=== PATIENT | female | born 1965 | race American Indian/Alaskan Native ===

== ENCOUNTER 2018-08-14 19:52 | Emergency (ER) | payer OTHER ==
[2018-08-14 20:08] VITALS: BP 155/94
--- NOTE | 2018-08-14 20:10 | Emergency Department Report ---
ED Recheck HPI - General Chief Complaint: Medical Clearance Stated Complaint: RX REFILL Time Seen by Provider: 08/14/18 20:06 Source: patient Mode of arrival: Ambulatory Limitations: No Limitations - History of Present Illness MD Complaint: medication refill request Description of Abnormal Result: visiting from out of town out of her metformin no complaints - Related Data Home Medications Medication Instructions Recorded Confirmed Last Taken hydroCHLOROthiazide [HCTZ] 25 mg PO QDAY 04/18/18 04/18/18 04/17/18 Previous Rx's Medication Instructions Recorded Last Taken Type metFORMIN [Glucophage] 500 mg PO BID #60 tablet 08/14/18 Unknown Rx Allergies Allergy/AdvReac Type Severity Reaction Status Date / Time No Known Allergies Allergy Verified 04/18/18 05:19 ED Review of Systems ROS: Stated complaint: RX REFILL Other details as noted in HPI Comment: All other systems reviewed and negative Constitutional: denies: see HPI Eyes: denies: eye pain ENT: denies: ear pain Respiratory: denies: cough Cardiovascular: denies: dyspnea on exertion Endocrine: denies: excessive sweating Gastrointestinal: denies: vomiting Genitourinary: denies: urgency Musculoskeletal: denies: back pain Skin: denies: lesions Psychiatric: denies: depression Hematological/Lymphatic: denies: easy bleeding ED Past Medical Hx - Past Medical History Previous Medical History?: Yes Hx Hypertension: Yes Hx Congestive Heart Failure: No Hx Diabetes: Yes Hx Asthma: No Hx HIV: No - Surgical History Past Surgical History?: Yes Additional Surgical History: x3 - Social History Smoking Status: Current Every Day Smoker - Medications Home Medications: Home Medications Medication Instructions Recorded Confirmed Last Taken Type hydroCHLOROthiazide [HCTZ] 25 mg PO QDAY 04/18/18 04/18/18 04/17/18 History metFORMIN [Glucophage] 500 mg PO BID #60 tablet 08/14/18 Unknown Rx ED Physical Exam - General Limitations: No Limitations General appearance: alert, in no apparent distress - Head Head exam: Present: atraumatic - Eye Eye exam: Present: normal appearance, PERRL Pupils: Present: normal accommodation - ENT ENT exam: Present: mucous membranes moist - Neck Neck exam: Present: normal inspection, full ROM - Respiratory Respiratory exam: Present: normal lung sounds bilaterally - Cardiovascular Cardiovascular Exam: Present: regular rate - GI/Abdominal GI/Abdominal exam: Present: soft, normal bowel sounds - Rectal Rectal exam: Present: deferred - Extremities Exam Extremities exam: Present: normal inspection - Back Exam Back exam: Present: normal inspection - Neurological Exam Neurological exam: Present: alert, oriented X3, CN II-XII intact, normal gait ED Course Vital Signs 08/14/18 20:06 Temperature 98.1 F Pulse Rate 90 Respiratory 18 Rate Blood Pressure 155/94 O2 Sat by Pulse 99 Oximetry ED Recheck MDM - Differential Diagnosis Prescription Refill(s) Critical care attestation.: If time is entered above; I have spent that time in minutes in the direct care of this critically ill patient, excluding procedure time. ED Disposition Clinical Impression: Diabetes mellitus type 2 in obese, Medication refill Disposition: DC- TO HOME OR SELFCARE Is pt being admited?: No Does the pt Need Aspirin: No Condition: Stable Prescriptions: metFORMIN [Glucophage] 500 mg PO BID #60 tablet Referrals: [facility] [Outside] - 3-5 Days Time of Disposition: 20:07
== END 2018-08-14 20:10 | disposition home or self-care (01) ==
LOC: ED 19:52
DX: E11.69 Type 2 diabetes mellitus with other specified complication (principal); I10 Essential (primary) hypertension; F17.200 Nicotine dependence, unspecified, uncomplicated; Z79.84 Long term (current) use of oral hypoglycemic drugs; Z76.0 Encounter for issue of repeat prescription
CPT/HCPCS: 99282

== ENCOUNTER 2018-10-04 11:36 | Emergency (ER) | payer OTHER ==
[2018-10-04 12:16] VITALS: BP 153/87
--- NOTE | 2018-10-04 12:18 | Emergency Department Report ---
ED Recheck HPI - General Chief Complaint: Medical Clearance Stated Complaint: MED REFILL Time Seen by Provider: 10/04/18 12:16 Source: patient Mode of arrival: Ambulatory Limitations: No Limitations - History of Present Illness MD Complaint: medication refill request - Related Data Home Medications Medication Instructions Recorded Confirmed Last Taken hydroCHLOROthiazide [HCTZ] 25 mg PO QDAY 04/18/18 04/18/18 04/17/18 Previous Rx's Medication Instructions Recorded Last Taken Type metFORMIN [Glucophage] 500 mg PO BID #60 tablet 08/14/18 Unknown Rx hydroCHLOROthiazide [HCTZ] 25 mg PO QDAY #30 tablet 10/04/18 Unknown Rx Allergies Allergy/AdvReac Type Severity Reaction Status Date / Time No Known Allergies Allergy Verified 10/04/18 11:45 ED Review of Systems ROS: Stated complaint: MED REFILL Other details as noted in HPI Comment: All other systems reviewed and negative ED Past Medical Hx - Past Medical History Hx Hypertension: Yes Hx Congestive Heart Failure: No Hx Diabetes: Yes Hx Asthma: No Hx HIV: No - Surgical History Additional Surgical History: x3 - Social History Smoking Status: Current Every Day Smoker Substance Use Type: None - Medications Home Medications: Home Medications Medication Instructions Recorded Confirmed Last Taken Type hydroCHLOROthiazide [HCTZ] 25 mg PO QDAY 04/18/18 04/18/18 04/17/18 History metFORMIN [Glucophage] 500 mg PO BID #60 tablet 08/14/18 Unknown Rx hydroCHLOROthiazide [HCTZ] 25 mg PO QDAY #30 tablet 10/04/18 Unknown Rx ED Physical Exam - General Limitations: No Limitations General appearance: alert - Head Head exam: Present: atraumatic, normocephalic - Eye Eye exam: Present: normal appearance, PERRL - ENT ENT exam: Present: mucous membranes moist - Neck Neck exam: Present: normal inspection, full ROM - Respiratory Respiratory exam: Present: normal lung sounds bilaterally - Cardiovascular Cardiovascular Exam: Present: regular rate - GI/Abdominal GI/Abdominal exam: Present: soft, normal bowel sounds - Extremities Exam Extremities exam: Present: normal inspection, full ROM - Back Exam Back exam: Present: normal inspection, full ROM - Neurological Exam Neurological exam: Present: alert, oriented X3 - Psychiatric Psychiatric exam: Present: normal affect, normal mood ED Course Vital Signs 10/04/18 12:15 Temperature 98.1 F Pulse Rate 76 Respiratory 18 Rate Blood Pressure 153/87 [Right] O2 Sat by Pulse 99 Oximetry ED Recheck MDM - Core Measures Measure Exclusions: not indicated - Differential Diagnosis Prescription Refill(s) - Medical Decision Making no symptoms just needs hctz refill visiting from out of town Vital Signs 10/04/18 12:15 Temperature 98.1 F Pulse Rate 76 Respiratory 18 Rate Blood Pressure 153/87 [Right] O2 Sat by Pulse 99 Oximetry Critical care attestation.: If time is entered above; I have spent that time in minutes in the direct care of this critically ill patient, excluding procedure time. ED Disposition Clinical Impression: Hypertension, Medication refill Disposition: DC-01 TO HOME OR SELFCARE Is pt being admited?: No Does the pt Need Aspirin: No Condition: Stable Instructions: Hypertension (ED) Prescriptions: hydroCHLOROthiazide [HCTZ] 25 mg PO QDAY #30 tablet Referrals: [facility] [Outside] - 3-5 Days Time of Disposition: 12:17
== END 2018-10-04 12:20 | disposition home or self-care (01) ==
LOC: ED 11:36
DX: I10 Essential (primary) hypertension (principal); E11.9 Type 2 diabetes mellitus without complications; F17.200 Nicotine dependence, unspecified, uncomplicated; Z76.0 Encounter for issue of repeat prescription; Z79.84 Long term (current) use of oral hypoglycemic drugs
CPT/HCPCS: 99281

== ENCOUNTER 2018-12-13 14:52 | Emergency (ER) | payer SELFPAY ==
--- NOTE | 2018-12-13 15:24 | Emergency Department Report ---
ED Recheck HPI - General Chief Complaint: Recheck/Abnormal Lab/Rx Stated Complaint: MEDICATION REFILL Time Seen by Provider: 12/13/18 15:23 Source: patient Mode of arrival: Ambulatory Limitations: No Limitations - History of Present Illness Initial Comments: 53 YO KNOWN TO US. NEW TO [facility]. OUT OF HER MEDS. DOES HAVE NEW PCP APPNT SET UP NO COMPLAINTS HERE FOR MEDS ONLY MD Complaint: medication refill request Symptoms Since Prior Visit: no new symptoms - Related Data Previous Rx's Medication Instructions Recorded Last Taken Type hydroCHLOROthiazide [HCTZ] 25 mg PO QDAY #30 tablet 12/13/18 Unknown Rx metFORMIN [Glucophage] 500 mg PO BID #60 tablet 12/13/18 Unknown Rx Allergies Allergy/AdvReac Type Severity Reaction Status Date / Time No Known Allergies Allergy Verified 12/13/18 14:55 ED Review of Systems ROS: Stated complaint: MEDICATION REFILL Other details as noted in HPI Comment: All other systems reviewed and negative ED Past Medical Hx - Past Medical History Hx Hypertension: Yes Hx Congestive Heart Failure: No Hx Diabetes: Yes Hx Asthma: No Hx HIV: No - Surgical History Additional Surgical History: x3 - Family History Family history: no significant - Social History Smoking Status: Current Every Day Smoker Substance Use Type: None - Medications Home Medications: Home Medications Medication Instructions Recorded Confirmed Last Taken Type hydroCHLOROthiazide [HCTZ] 25 mg PO QDAY #30 tablet 12/13/18 Unknown Rx metFORMIN [Glucophage] 500 mg PO BID #60 tablet 12/13/18 Unknown Rx ED Physical Exam - General Limitations: No Limitations General appearance: alert - Head Head exam: Present: normocephalic - Eye Eye exam: Present: normal appearance - ENT ENT exam: Present: mucous membranes moist - Neck Neck exam: Present: normal inspection - Respiratory Respiratory exam: Present: normal lung sounds bilaterally - Cardiovascular Cardiovascular Exam: Present: regular rate - GI/Abdominal GI/Abdominal exam: Present: soft - Rectal Rectal exam: Present: deferred - Extremities Exam Extremities exam: Present: normal inspection - Back Exam Back exam: Present: normal inspection - Neurological Exam Neurological exam: Present: alert, oriented X3 - Psychiatric Psychiatric exam: Present: normal affect ED Recheck MDM - Core Measures Measure Exclusions: not indicated - Medical Decision Making VSS NO COMPLAINTS MED REFILL ONLY KNOWN TO US HAS PCP NOW- WILL SEE THIS MONTH NEW TO [facility]- HAD BEEN VISITING HER MOTHER HERE DC HOME W RX AND PCP FOLLOW UP Critical care attestation.: If time is entered above; I have spent that time in minutes in the direct care of this critically ill patient, excluding procedure time. ED Disposition Clinical Impression: Medication refill, Diabetes mellitus type 2 in obese, Hypertension Disposition: DC-01 TO HOME OR SELFCARE Is pt being admited?: No Does the pt Need Aspirin: No Condition: Stable Instructions: Diabetes Mellitus Type 2 in Adults (ED), Hypertension (ED) Prescriptions: metFORMIN [Glucophage] 500 mg PO BID #60 tablet hydroCHLOROthiazide [HCTZ] 25 mg PO QDAY #30 tablet Referrals: [facility] [Outside] - 3-5 Days Time of Disposition: 15:25
== END 2018-12-13 16:10 | disposition home or self-care (01) ==
LOC: ED 14:52
DX: E11.9 Type 2 diabetes mellitus without complications (principal); I10 Essential (primary) hypertension; F17.200 Nicotine dependence, unspecified, uncomplicated; Z76.0 Encounter for issue of repeat prescription; Z79.899 Other long term (current) drug therapy
CPT/HCPCS: 99281

== ENCOUNTER 2019-03-28 20:16 | Emergency (ER) | payer SELFPAY ==
[2019-03-28 21:27] VITALS: BP 132/78
--- NOTE | 2019-03-28 21:31 | Emergency Department Report ---
ED Recheck HPI - General Chief Complaint: Medical Clearance Stated Complaint: HIGH BLOOD PRESSURE Time Seen by Provider: 03/28/19 21:28 Source: patient Mode of arrival: Ambulatory Limitations: No Limitations - History of Present Illness Initial Comments: This is a 53-year-old female nontoxic, well in appearance with no signs of distress presents to the ED for medication refill as she left her medications in the airplane. Patient stated she is asymptotic. Patient denies any urinary symptoms. Patient denies any fever, chills, headache, nausea, vomiting, chest pain or shortness of breathe. denies any other symptoms or complaints. Denies any allergies. MD Complaint: medication refill request -: This morning Returns Today for: request for prescription Symptoms Since Prior Visit: no new symptoms Associated Symptoms: none. denies: fever, chills, chest pain, shortness of breath, rash, malaise, nasuea, abdominal pain - Related Data Previous Rx's Medication Instructions Recorded Last Taken Type hydroCHLOROthiazide [HCTZ] 25 mg PO QDAY #30 tablet 12/13/18 Unknown Rx metFORMIN [Glucophage] 500 mg PO BID #60 tablet 12/13/18 Unknown Rx hydroCHLOROthiazide [HCTZ] 25 mg PO QDAY #30 tablet 03/28/19 Unknown Rx metFORMIN [Glucophage] 500 mg PO BID #60 tablet 03/28/19 Unknown Rx Allergies Allergy/AdvReac Type Severity Reaction Status Date / Time No Known Allergies Allergy Verified 12/13/18 14:55 ED Review of Systems ROS: Stated complaint: HIGH BLOOD PRESSURE Other details as noted in HPI Constitutional: denies: chills, fever Eyes: denies: eye pain, eye discharge, vision change ENT: denies: ear pain, throat pain Respiratory: denies: cough, shortness of breath, wheezing Cardiovascular: denies: chest pain, palpitations Endocrine: no symptoms reported Gastrointestinal: denies: abdominal pain, nausea, diarrhea Genitourinary: denies: urgency, dysuria, discharge Musculoskeletal: denies: back pain, joint swelling, arthralgia Skin: denies: rash, lesions Neurological: denies: headache, weakness, paresthesias Psychiatric: denies: anxiety, depression Hematological/Lymphatic: denies: easy bleeding, easy bruising ED Past Medical Hx - Past Medical History Hx Hypertension: Yes Hx Congestive Heart Failure: No Hx Diabetes: Yes Hx Asthma: No Hx HIV: No - Surgical History Additional Surgical History: x3 - Social History Smoking Status: Current Every Day Smoker Substance Use Type: None - Medications Home Medications: Home Medications Medication Instructions Recorded Confirmed Last Taken Type hydroCHLOROthiazide [HCTZ] 25 mg PO QDAY #30 tablet 12/13/18 Unknown Rx metFORMIN [Glucophage] 500 mg PO BID #60 tablet 12/13/18 Unknown Rx hydroCHLOROthiazide [HCTZ] 25 mg PO QDAY #30 tablet 03/28/19 Unknown Rx metFORMIN [Glucophage] 500 mg PO BID #60 tablet 03/28/19 Unknown Rx ED Physical Exam - General Limitations: No Limitations General appearance: alert, in no apparent distress - Head Head exam: Present: atraumatic, normocephalic - Neck Neck exam: Present: normal inspection, full ROM. Absent: tenderness, meningismus, lymphadenopathy - Respiratory Respiratory exam: Present: normal lung sounds bilaterally. Absent: respiratory distress, wheezes - Cardiovascular Cardiovascular Exam: Present: regular rate, normal rhythm, normal heart sounds - GI/Abdominal GI/Abdominal exam: Present: soft. Absent: distended - Extremities Exam Extremities exam: Present: normal inspection, full ROM - Back Exam Back exam: Present: normal inspection, full ROM - Neurological Exam Neurological exam: Present: alert, oriented X3, normal gait - Psychiatric Psychiatric exam: Present: normal affect, normal mood - Skin Skin exam: Present: warm, dry, intact, normal color. Absent: rash ED Course Vital Signs 03/28/19 21:04 Temperature 98.2 F Pulse Rate 76 Respiratory 18 Rate Blood Pressure 132/78 O2 Sat by Pulse 95 Oximetry - Reevaluation(s) Reevaluation #1: 03/28/19 21:30 Patient is speaking in full sentences with no signs of distress noted. ED Recheck MDM - Medical Decision Making Patient was instructed to Follow-up with a primary care doctor in 3-5 days or if symptoms worsen and continue return to emergency room as soon as possible. At time of discharge, the patient does not seem toxic or ill in appearance. No acute signs of distress noted. Patient agrees to discharge treatment plan of care. No further questions noted by the patient. Critical care attestation.: If time is entered above; I have spent that time in minutes in the direct care of this critically ill patient, excluding procedure time. ED Disposition Clinical Impression: Medication refill Disposition: DC- TO HOME OR SELFCARE Is pt being admited?: No Does the pt Need Aspirin: No Condition: Stable Additional Instructions: Follow-up with a primary care doctor in 3-5 days or if symptoms worsen and continue return to emergency room as soon as possible. Prescriptions: metFORMIN [Glucophage] 500 mg PO BID #60 tablet hydroCHLOROthiazide [HCTZ] 25 mg PO QDAY #30 tablet Referrals: PRIMARY MD BRENNEN [Referring] - 3-5 Days LORY ROBERTS MD [Staff Physician] - 3-[address] [facility] [Outside] - 3-5 Days [facility] [Outside] - 3-5 Days
== END 2019-03-28 21:35 | disposition home or self-care (01) ==
LOC: ED 20:16
DX: I10 Essential (primary) hypertension (principal); Z76.0 Encounter for issue of repeat prescription; E11.9 Type 2 diabetes mellitus without complications; F17.200 Nicotine dependence, unspecified, uncomplicated; Z79.84 Long term (current) use of oral hypoglycemic drugs; Z79.899 Other long term (current) drug therapy
CPT/HCPCS: 99282

== ENCOUNTER 2020-05-09 09:27 | Emergency (ER) | payer SELFPAY ==
[2020-05-09 09:39] VITALS: BP 185/98
--- NOTE | 2020-05-09 10:16 | XRay Report ---
RIGHT SHOULDER 3 VIEW(S) INDICATION / CLINICAL INFORMATION: pain sp fall COMPARISON: None FINDINGS: BONES / JOINT(S): No acute fracture or malalignment. There is mild right AC osteoarthritis. The subac romial space is preserved. No evidence of glenohumeral joint malalignment. SOFT TISSUES: No significant abnormality. ADDITIONAL FINDINGS: None. IMPRESSION: No acute osseous findings in the right shoulder. Signer Name: Naveed Luciano MD Signed: 05/09/2020 10:12 AM Workstation Name: [id number]
--- NOTE | 2020-05-09 10:42 | Emergency Department Report ---
ED Upper Extremity Inj HPI - General Chief Complaint: Extremity Injury, Upper Stated Complaint: HEAD PAIN/RT SHOULDER PAIN Time Seen by Provider: 05/09/20 10:37 Source: patient Mode of arrival: Ambulatory Limitations: No Limitations - History of Present Illness Initial Comments: Patient is a 54-year-old female presents emergency room with complaints of right shoulder pain that began yesterday. She states that a picture frame accidentally fell onto her shoulder. She states this morning when she woke up she had pain in her shoulder. She denies ever injuring in the past. She is right-hand dominant. She denies any numbness or weakness. She states her pain is worse with movement. Has a past medical history of hypertension and diabetes. She states that she is out of her hydrochlorothiazide. She denies any medication allergies. - Related Data Previous Rx's Medication Instructions Recorded Last Taken Type hydroCHLOROthiazide [HCTZ] 25 mg PO QDAY #30 tablet 12/13/18 Unknown Rx metFORMIN [Glucophage] 500 mg PO BID #60 tablet 12/13/18 Unknown Rx Menthol/Camphor [Brick [place] 1 applicatio TP BID #18 oint...g. 05/09/20 Unknown Rx Ointment] Naproxen [EC-Naprosyn] 500 mg PO BID PRN #14 tablet.dr 05/09/20 Unknown Rx hydroCHLOROthiazide [HCTZ] 25 mg PO QDAY #30 tablet 05/09/20 Unknown Rx metFORMIN [Glucophage] 500 mg PO BID #60 tablet 05/09/20 Unknown Rx Allergies Allergy/AdvReac Type Severity Reaction Status Date / Time No Known Allergies Allergy Verified 05/09/20 09:31 ED Review of Systems ROS: Stated complaint: HEAD PAIN/RT SHOULDER PAIN Other details as noted in HPI Comment: All other systems reviewed and negative ED Past Medical Hx - Past Medical History Hx Hypertension: Yes Hx Congestive Heart Failure: No Hx Diabetes: Yes Hx Asthma: No Hx HIV: No - Surgical History Additional Surgical History: x3 - Social History Smoking Status: Never Smoker - Medications Home Medications: Home Medications Medication Instructions Recorded Confirmed Last Taken Type hydroCHLOROthiazide [HCTZ] 25 mg PO QDAY #30 tablet 12/13/18 Unknown Rx metFORMIN [Glucophage] 500 mg PO BID #60 tablet 12/13/18 Unknown Rx Menthol/Camphor [Brick [place] 1 applicatio TP BID #18 oint...g. 05/09/20 Unknown Rx Ointment] Naproxen [EC-Naprosyn] 500 mg PO BID PRN #14 tablet. 05/09/20 Unknown Rx hydroCHLOROthiazide [HCTZ] 25 mg PO QDAY #30 tablet 05/09/20 Unknown Rx metFORMIN [Glucophage] 500 mg PO BID #60 tablet 05/09/20 Unknown Rx ED Physical Exam - General Limitations: No Limitations General appearance: alert, in no apparent distress - Head Head exam: Present: atraumatic, normocephalic - Eye Eye exam: Present: normal appearance - ENT ENT exam: Present: mucous membranes moist - Neck Neck exam: Present: normal inspection, full ROM. Absent: tenderness - Respiratory Respiratory exam: Present: normal lung sounds bilaterally. Absent: respiratory distress, wheezes, rales, rhonchi, stridor, chest wall tenderness, accessory muscle use, decreased breath sounds, prolonged expiratory - Cardiovascular Cardiovascular Exam: Present: regular rate, normal rhythm, normal heart sounds. Absent: systolic murmur, diastolic murmur, rubs, gallop - Extremities Exam Extremities exam: Present: other (right posterior shoulder ttp, no deformity, no ecchymosis, no edema, no abrasion or laceration, no sulcus sign, no clavicular ttp, clavicles are equal, FROM of the RUE, neurovascularly intact) - Back Exam Back exam: Present: normal inspection, full ROM. Absent: paraspinal tenderness, vertebral tenderness - Neurological Exam Neurological exam: Present: alert, oriented X3, CN II-XII intact, normal gait. Absent: motor sensory deficit - Psychiatric Psychiatric exam: Present: normal affect, normal mood - Skin Skin exam: Present: warm, dry, intact ED Course Vital Signs 05/09/20 09:32 Temperature 97.8 F Pulse Rate 74 Respiratory 20 Rate Blood Pressure 185/98 O2 Sat by Pulse 100 Oximetry ED Medical Decision Making - Radiology Data Radiology results: report reviewed Ordering Physician: DRE CANTOR Date of Service: 05/09/20 Procedure(s): XR shoulder 2+V RT Accession Number(s): [id number] cc: DRE CANTOR Fluoro Time In Minutes: RIGHT SHOULDER 3 VIEW(S) INDICATION / CLINICAL INFORMATION: pain sp fall COMPARISON: None FINDINGS: BONES / JOINT(S): No acute fracture or malalignment. There is mild right AC osteoarthritis. The subacromial space is preserved. No evidence of glenohumeral joint malalignment. SOFT TISSUES: No significant abnormality. ADDITIONAL FINDINGS: None. IMPRESSION: No acute osseous findings in the right shoulder. Signer Name: Jai Luciano MD Signed: 05/09/2020 10:12 AM Workstation Name: [id number] Transcribed By: NIDIA Dictated By: JAI LUCIANO MD Electronically Authenticated By: JAI LUCIANO MD Signed Date/Time: 05/09/20 1012 DD/ 1011 TD/TT: - Medical Decision Making Patient is a 54-year-old female presents emergency room with complaints of right shoulder pain that began yesterday. She states that a picture frame accidentally fell onto her shoulder. She states this morning when she woke up she had pain in her shoulder. She denies ever injuring in the past. She is right-hand dominant. She denies any numbness or weakness. She states her pain is worse with movement. Has a past medical history of hypertension and diabetes. She states that she is out of her hydrochlorothiazide. She denies any medication allergies. Vitals with elevated blood pressure, otherwise normal. Patient has not been taking her blood pressure medication. Patient will be given a refill of her medication, discussed lifestyle modifications with patient, discussed to keep a blood pressure log and follow-up with a primary care doctor regarding her blood pressure. On exam:right posterior shoulder ttp, no deformity, no ecchymosis, no edema, no abrasion or laceration, no sulcus sign, no clavicular ttp, clavicles are equal, FROM of the RUE, neurovascularly intact. XR right shoulder: No acute osseous findings in the right shoulder. Discussed all results with patient and answered questions. Patient given prescription for naproxen and Brick balm ointment. Patient given a refill of her home medications. Advised patient Please use medication as prescribed. May use ice pack, heating pad, rest, Epson salt bath. Follow-up with orthopedic doctor. Follow-up with your primary care doctor. Please take your home medications as prescribed. Increase your water intake. Eat a low-sodium diet. Incorporate 30 to 60 minutes of daily exercise. Follow-up with your primary care doctor regarding the elevation in your blood pressure. Return to emergency room for any new or worsening symptoms. - Differential Diagnosis Strain, sprain, fracture, dislocation, tendinitis, contusion Critical care attestation.: If time is entered above; I have spent that time in minutes in the direct care of this critically ill patient, excluding procedure time. ED Disposition Clinical Impression: Elevated blood pressure reading, Non compliance w medication regimen Right shoulder pain Qualifiers: Chronicity: acute Qualified Code(s): M25.511 - Pain in right shoulder Disposition: DC-01 TO HOME OR SELFCARE Is pt being admited?: No Does the pt Need Aspirin: No Condition: Stable Instructions: Shoulder Pain, Low-Sodium Eating Plan, Hypertension, Adult Additional Instructions: Please use medication as prescribed. May use ice pack, heating pad, rest, Epson salt bath. Follow-up with orthopedic doctor. Follow-up with your primary care doctor. Please take your home medications as prescribed. Increase your water intake. Eat a low-sodium diet. Incorporate 30 to 60 minutes of daily exercise. Follow-up with your primary care doctor regarding the elevation in your blood pressure. Return to emergency room for any new or worsening symptoms. Prescriptions: Naproxen [EC-Naprosyn] 500 mg PO BID PRN #14 tablet.dr AMOS Reason: pain metFORMIN [Glucophage] 500 mg PO BID #60 tablet hydroCHLOROthiazide [HCTZ] 25 mg PO QDAY #30 tablet Menthol/Camphor [Brick [place] Ointment] 1 applicatio TP BID #18 oint...g. Referrals: JOSEPH RUSSELL MD [Staff Physician] - 2-3 Days [facility] [Provider Group] - 2-3 Days GIACOMO RANGEL MD [Staff Physician] - 2-3 Days [facility] [Provider Group] - 2-3 Days [facility], [LAB/CONTRACT] - 2-3 Days Forms: Work/School Release Form(ED) Time of Disposition: 10:45 Print Language: KITTITIAN
== END 2020-05-09 11:30 | disposition home or self-care (01) ==
LOC: ED 09:27
DX: R03.0 Elevated blood-pressure reading, without diagnosis of hypertension (principal); M25.511 Pain in right shoulder; Z91.14 Patient's other noncompliance with medication regimen; I10 Essential (primary) hypertension; E11.9 Type 2 diabetes mellitus without complications; Z79.899 Other long term (current) drug therapy
CPT/HCPCS: 99283